=== PATIENT | male | born 1980 | race Caucasian/White ===

== ENCOUNTER 2023-07-26 16:30 | Emergency (ER) | payer BC ==
--- OUTSIDE RECORDS SUMMARY | 2023-07-26 16:34 | XMS REPORT | Continuity of Care Document ---
:1980 Author Organization [facility] t Address [address] [place] [address] [place] [id number] Care Team Providers Name Role Phone Moni Osullivan Primary Care Physician [phone] [email or web address] Attending Clinician Unavailable Jeimy Ellis Attending Clinician [phone] ARTI Attending Clinician Unavailable Sydney Nicole Attending Clinician [phone] FANTA Attending Clinician Unavailable SYEDA_Rachele Attending Clinician Unavailable MONI HYATT Attending Clinician Unavailable KJ FAIRCHILD Attending Clinician Unavailable DAVINA KRISHNA Attending Clinician Unavailable TIARA TATE Attending Clinician Unavailable LYN ENG Attending Clinician Unavailable RHONDA_F Admitting Clinician Unavailable WATERS_S Admitting Clinician Unavailable FANTA Admitting Clinician Unavailable ERYESENIA_R Admitting Clinician Unavailable Payers Payer Name Policy Type Policy Number Effective Date Expiration Date Dinorah bailey [facility] [id number] 2019 00:00:00 [facility] [id number] 2019 00:00:00 [employer] O [id number] 2018 00:00:00 Problems Condition Condition Condition Status Onset Resolution Last Treating Co mments Source Name Details Category Date Date Treatment Clinician Date Fever Fever Problem Active [facility] 8 [facility] 00:[facility]: ty [facility] COVID-19 Covid-19 Problem Active Sween y 04-16 [facility] 00:00: ty [facility] Prediabete Prediabete Problem Active 2021-09 S weeny s s 0-06 Communi 00:00: ty 00 [facility] Degenerati Degenerati Problem Active 2021-09 S weeny ve ve 0-06 Communi disorder Disorder 00:00: ty 00 [facility] Clin[facility] Adult Adult Problem Active [facility] attention Attention 7-18 Comm uni deficit Deficit 00:00: ty hyperactiv Hyperactiv 00 Ho spita ity ity l disorder Disorder Clinic s Hypertensi Hypertensi Problem Active S weeny ve ve 7-18 Communi disorder Disorder 00:00: ty 00 [facility]ospita Clin[facility] Vitamin D Vitamin D Problem Active 2019-09 Swe xi deficiency Deficiency -11 Co mmuni 00:00: ty 00 [facility] Clinics Steatosis Steatosis Problem Active 2019-09 Swe xi of liver of Liver 09-11 Commun i 00:00: ty 00 [facility] Clin[facility] Serum Serum Problem Active 2019-09 [facility] ferritin Ferritin 09-11 Commun i above above 00:00: ty reference Reference 00 [facility] range Range l Clinics Hyperlipid Hyperlipid Problem Active 2019-09 S weeny emia emia 0-21 Communi 00:00: ty 00 [facility] Clin[facility] Malaise Malaise Problem Active 2019-09 [facility] 0-21 [facility]i 00:00: ty 00 [facility] Clin[facility] Liver Liver Problem Active 2019-09 [facility] enzymes Enzymes 0-21 Communi level Level 00:00: ty above above 00 Hospita reference Reference l range Range Clinics Gout Gout Problem Active 2018-09 [facility] 2-03 Communi 00:00: ty 00 [facility] Clin[facility] Essential Essential Problem Active 2018-09 Swe xi hypertensi Hypertensi 09-29 Co mmuni on on 00:00: ty 00 [facility]ospita Clinics Malaise Malaise Problem Active 2018-09 [facility] and and 09-29 Communi fatigue Fatigue 00:00: ty 00 [facility]osp[facility] Clin[facility] Reduced Reduced Problem Active 2018-09 [facility] libido Libido 09-29 Communi 00:00: ty 00 [facility] Clin[facility] Body mass Body Mass Problem Active 2018-09 Swe xi index 40+ Index 40+ - Comm uni - severely - Severely 00:00: ty obese Obese 00 Hospita Clinics Swelling Swelling Problem Active 2018-09 Sween y of of 09-29 Communi bilateral Bilateral 00:00: ty feet Feet 00 Hospita Clinics Acid Acid Problem Active 2017-09 [facility] reflux Reflux 09-02 Communi 00:00: ty 00 [facility]osp[facility] Clinics No known No known Disease Metho di active active st problems problems Hospit a l Allergies, Adverse Reactions, Alerts Allergy Allergy Status Severity Reaction(s) Onset Inactive Treating Comm ents Source Name Type Date Date Clinician NO KNOWN Drug Active Univers ALLERGIE Class ity of S [facility] Family History Family Member Diagnosis Comments Start Date Stop Date Source Maternal grandmother Heart disease [facility] Natural mother Stroke [facility] Social History Social Habit Start Date Stop Date Quantity Comments Source History of tobacco Chews Tobacco Met [facility]od[facility] use Hospital Sexual orientation Method [facility] Alcohol intake 2019-11-23 2019-11-23 Current drinker Metho dist 00:00:00 00:00:00 of alcohol Hospital (finding) History of Social 2019-11-23 2019-11-[address] function 00:00:00 00:00:00 Hospital Tobacco use and 2019-10-20 2019-10-20 User of [facility] exposure 00:00:00 00:00:00 smokeless Hospital tobacco Tobacco Comment 2019-10-20 2019-10-20 Chew at work [facility] 00[facility]00:00 00:00:00 Hospital Sex Assigned At [birth year] [facility] 00:00:00 00:00:00 Hospital Smoking Status Start Date Stop Date Source Never Smoker [facility] Medications Ordered Filled Start Stop Current Ordering Indication Dosage Frequency Signature Comments Components Source Medication Medication Date Date Medication? Clinician (SIG) Name Name allopurinoL 2020- No 300mg QD Take 1 Me thodi (ZYLOPRIM) 02-01 06-[address] 300 MG 00:00: 04:59 (300 mg Hospita tablet 00 :00 total) by l mouth daily. ascorbic 2019-0 Yes 500mg Q.5D Take 1 Method i acid, 3-[address] vitamin C, 00:00: (500 mg [facility] (ascorbic 00 total) by l acid with mouth 2 acacia hips) (two) 500 MG times a tablet day. ascorbic 2020-0 Yes 500mg Q.5D Take 1 Method i acid, 3-[address] vitamin C, 00:00: (500 mg [facility] (ascorbic 00 total) by l acid with mouth 2 acacia hips) (two) 500 MG times a tablet day. losartan 2020-0 Yes 50mg QD Take 50 mg Met hodi (COZAAR) 25 2-[address] MG tablet 00:00: daily. Hospit a 00 l losartan 2020-0 Yes 50mg QD Take 50 mg Met hodi (COZAAR) 25 2-[address] MG tablet 00:00: daily. Hospit a 00 l allopurinol allopurinol No 1 Q1D allopurino [facility] 300 mg 300 mg l 300 mg Communi tablet Take tablet Take tablet ty 1 tablet 1 tablet Take 1 Hospi ta every day every day tablet l by oral by oral every day Clin ics route for route for by oral 90 days. 90 days. route for 90 days. bupropion bupropion No bupropion [facility] HCl XL 300 HCl XL 300 HCl XL 300 Communi mg 24 hr mg 24 hr mg 24 hr ty tablet, tablet, tablet, Hospit a extended extended extended l release release release Clinic s Decara Decara No 1capsul Q1W Decara [facility] 1,250 mcg 1,250 mcg e(s) 1,250 mcg Communi (50,000 (50,000 (50,000 ty unit) unit) unit) Hospita capsule capsule capsule l Take 1 Take 1 Take 1 Clinics capsule capsule capsule every week every week every week by oral by oral by oral route. route. route. dextroamphe dextroamphe No dextroamph [facility] tamine-amph tamine-amph etamine-am Communi etamine 15 etamine 15 phetamine ty mg tablet mg tablet 15 mg [facility] TAKE 1 TAKE 1 tablet l TABLET BY TABLET BY TAKE 1 Cli nics MOUTH TWICE MOUTH TWICE TABLET BY A DAY A DAY MOUTH TWICE A DAY fluoxetine fluoxetine No fluoxetine [facility] 20 mg 20 mg 20 mg Communi capsule capsule capsule ty TAKE 1 TAKE 1 TAKE 1 Hospita CAPSULE BY CAPSULE BY CAPSULE BY l MOUTH EVERY MOUTH EVERY MOUTH Clinics DAY DAY EVERY DAY ivermectin ivermectin No 2 BID ivermectin [facility] 3 mg tablet 3 mg tablet 3 mg C ommuni Take 2 Take 2 tablet ty tablets tablets Take 2 Hospita twice a day twice a day tablets l by oral by oral twice a Clinic s route. route. day by oral route. losartan 50 losartan 50 No losartan [facility] mg tablet mg tablet 50 mg Comm uni Take 1 Take 1 tablet ty tablet tablet Take 1 Hospita every day every day tablet l by oral by oral every day Clin ics route. route. by oral route. Niaspan Niaspan No 1 Q1D Niaspan [facility] 1,000 mg 1,000 mg 1,000 mg Com vin tablet,exte tablet,exte tablet,ext ty nded nded ended Hospita release release release l Take 1 Take 1 Take 1 Clinics tablet tablet tablet every day every day every day by oral by oral by oral route at route at route at bedtime. bedtime. bedtime. venlafaxine venlafaxine No 1capsul Q1D venlafaxin [facility] ER 75 mg ER 75 mg e(s) e ER 75 mg C ommuni capsule,ext capsule,ext capsule,ex ty ended ended tended Hospita release 24 release 24 release 24 l hr Take 1 hr Take 1 hr Take 1 Clinics capsule capsule capsule every day every day every day by oral by oral by oral route. route. route. Zithromax Zithromax No 1 Q1D Zithromax [facility] 500 mg 500 mg 500 mg Communi tablet Take tablet Take tablet ty 1 tablet 1 tablet Take 1 Hospi ta every day every day tablet l by oral by oral every day Clin ics route for 5 route for 5 by oral days. days. route for 5 days. allopurinol allopurinol No allopurino [facility] 300 mg 300 mg l 300 mg Communi tablet TAKE tablet TAKE tablet ty 1 TABLET BY 1 TABLET BY TAKE 1 Hospita MOUTH EVERY MOUTH EVERY TABLET BY l DAY DAY MOUTH Clinics EVERY DAY cholecalcif cholecalcif No cholecalci [facility] lemuel lemuel ferol Communi (vitamin (vitamin (vitamin ty D3) 1,250 D3) 1,250 D3) 1,250 Hospita mcg (50,000 mcg (50,000 mcg l unit) unit) (50,000 Clinics capsule capsule unit) TAKE 1 TAKE 1 capsule CAPSULE BY CAPSULE BY TAKE 1 MOUTH EVERY MOUTH EVERY CAPSULE BY WEEK WEEK MOUTH EVERY WEEK dextroamphe dextroamphe No dextroamph [facility] tamine-amph tamine-amph etamine-am Communi etamine 15 etamine 15 phetamine ty mg tablet mg tablet 15 mg [facility] TAKE 1 TAKE 1 tablet l TABLET BY TABLET BY TAKE 1 Cli nics MOUTH TWICE MOUTH TWICE TABLET BY A DAY A DAY MOUTH TWICE A DAY dextroamphe dextroamphe No 1capsul Q1D dextroamph [facility] tamine-amph tamine-amph e(s) etamine-am Communi etamine ER etamine ER phetamine ty 30 mg 24hr 30 mg 24hr ER 30 mg Hospita capsule,ext capsule,ext 24hr l end release end release capsule,ex Clinics Take 1 Take 1 tend capsule capsule release every day every day Take 1 by oral by oral capsule route for route for every day 30 days. 30 days. by oral route for 30 days. losartan 50 losartan 50 No losartan [facility] mg tablet mg tablet 50 mg Comm uni Take 1 Take 1 tablet ty tablet tablet Take 1 Hospita every day every day tablet l by oral by oral every day Clin ics route. route. by oral route. niacin ER niacin ER No niacin ER [facility] 1,000 mg 1,000 mg 1,000 mg Com vin tablet,exte tablet,exte tablet,ext ty nded nded ended Hospita release 24 release 24 release 24 l hr TAKE 1 hr TAKE 1 hr TAKE 1 Clinics TABLET BY TABLET BY TABLET BY MOUTH AT MOUTH AT MOUTH AT BEDTIME BEDTIME BEDTIME allopurinol allopurinol No allopurino [facility] 300 mg 300 mg l 300 mg Communi tablet TAKE tablet TAKE tablet ty 1 TABLET BY 1 TABLET BY TAKE 1 Hospita MOUTH EVERY MOUTH EVERY TABLET BY l DAY DAY MOUTH Clinics EVERY DAY cholecalcif cholecalcif No cholecalci [facility] lemuel lemuel ferol Communi (vitamin (vitamin (vitamin ty D3) 1,250 D3) 1,250 D3) 1,250 Hospita mcg (50,000 mcg (50,000 mcg l unit) unit) (50,000 Clinics capsule capsule unit) TAKE 1 TAKE 1 capsule CAPSULE BY CAPSULE BY TAKE 1 MOUTH EVERY MOUTH EVERY CAPSULE BY WEEK WEEK MOUTH EVERY WEEK dextroamphe dextroamphe No dextroamph [facility] tamine-amph tamine-amph etamine-am Communi etamine 15 etamine 15 phetamine ty mg tablet mg tablet 15 mg [facility] TAKE 1 TAKE 1 tablet l TABLET BY TABLET BY TAKE 1 Cli nics MOUTH TWICE MOUTH TWICE TABLET BY A DAY A DAY MOUTH TWICE A DAY dextroamphe dextroamphe No dextroamph [facility] tamine-amph tamine-amph etamine-am Communi etamine ER etamine ER phetamine ty 30 mg 24hr 30 mg 24hr ER 30 mg Hospita capsule,ext capsule,ext 24hr l end release end release capsule,ex Clinics TAKE 1 TAKE 1 tend CAPSULE BY CAPSULE BY release MOUTH EVERY MOUTH EVERY TAKE 1 DAY DAY CAPSULE BY MOUTH EVERY DAY losartan 50 losartan 50 No losartan [facility] mg tablet mg tablet 50 mg Comm uni Take 1 Take 1 tablet ty tablet tablet Take 1 Hospita every day every day tablet l by oral by oral every day Clin ics route. route. by oral route. niacin ER niacin ER No niacin ER [facility] 1,000 mg 1,000 mg 1,000 mg Com vin tablet,exte tablet,exte tablet,ext ty nded nded ended Hospita release 24 release 24 release 24 l hr TAKE 1 hr TAKE 1 hr TAKE 1 Clinics TABLET BY TABLET BY TABLET BY MOUTH AT MOUTH AT MOUTH AT BEDTIME BEDTIME BEDTIME allopurinol allopurinol No allopurino [facility] 300 mg 300 mg l 300 mg Communi tablet TAKE tablet TAKE tablet ty 1 TABLET BY 1 TABLET BY TAKE 1 Hospita MOUTH EVERY MOUTH EVERY TABLET BY l DAY DAY MOUTH Clinics EVERY DAY azithromyci azithromyci No 1 Q1D azithromyc [facility] n 500 mg n 500 mg in 500 mg Co mmuni tablet Take tablet Take tablet ty 1 tablet 1 tablet Take 1 Hospi ta every day every day tablet l by oral by oral every day Clin ics route for 5 route for 5 by oral days. days. route for 5 days. cholecalcif cholecalcif No cholecalci [facility] lemuel lemuel ferol Communi (vitamin (vitamin (vitamin ty D3) 1,250 D3) 1,250 D3) 1,250 Hospita mcg (50,000 mcg (50,000 mcg l unit) unit) (50,000 Clinics capsule capsule unit) TAKE 1 TAKE 1 capsule CAPSULE BY CAPSULE BY TAKE 1 MOUTH EVERY MOUTH EVERY CAPSULE BY WEEK WEEK MOUTH EVERY WEEK dextroamphe dextroamphe No dextroamph [facility] tamine-amph tamine-amph etamine-am Communi etamine 15 etamine 15 phetamine ty mg tablet mg tablet 15 mg [facility] TAKE 1 TAKE 1 tablet l TABLET BY TABLET BY TAKE 1 Cli nics MOUTH TWICE MOUTH TWICE TABLET BY A DAY A DAY MOUTH TWICE A DAY dextroamphe dextroamphe No dextroamph [facility] tamine-amph tamine-amph etamine-am Communi etamine ER etamine ER phetamine ty 30 mg 24hr 30 mg 24hr ER 30 mg Hospita capsule,ext capsule,ext 24hr l end release end release capsule,ex Clinics TAKE 1 TAKE 1 tend CAPSULE BY CAPSULE BY release MOUTH EVERY MOUTH EVERY TAKE 1 DAY DAY CAPSULE BY MOUTH EVERY DAY fenofibrate fenofibrate No 2 Q1D fenofibrat [facility] 54 mg 54 mg e 54 mg Communi tablet Take tablet Take tablet ty 2 tablets 2 tablets Take 2 Hos denice every day every day tablets l by oral by oral every day Clin ics route. route. by oral route. ivermectin ivermectin No 2 BID ivermectin [facility] 3 mg tablet 3 mg tablet 3 mg C om[facility]i Take 2 Take 2 tablet ty tablets tablets Take 2 Hospita twice a day twice a day tablets l by oral by oral twice a Clinic s route. route. day by oral route. losartan 50 losartan 50 No losartan [facility] mg tablet mg tablet 50 mg Comm uni Take 1 Take 1 tablet ty tablet tablet Take 1 Hospita every day every day tablet l by oral by oral every day Clin ics route. route. by oral route. niacin ER niacin ER No niacin ER [facility] 1,000 mg 1,000 mg 1,000 mg Com vin tablet,exte tablet,exte tablet,ext ty nded nded ended Hospita release 24 release 24 release 24 l hr TAKE 1 hr TAKE 1 hr TAKE 1 Clinics TABLET BY TABLET BY TABLET BY MOUTH AT MOUTH AT MOUTH AT BEDTIME BEDTIME BEDTIME prednisone prednisone No 1 BID prednisone [facility] 20 mg 20 mg 20 mg Communi tablet Take tablet Take tablet ty 1 tablet 1 tablet Take 1 Hospi ta twice a day twice a day tablet l by oral by oral twice a Clinic s route for 5 route for 5 day by days. days. oral route for 5 days. promethazin promethazin No 1 Q7H promethazi [facility] e 25 mg e 25 mg ne 25 mg Commu ni tablet Take tablet Take tablet ty 1 tablet 1 tablet Take 1 Hospi ta every 6-8 every 6-8 tablet l hours by hours by every 6-8 Cl inics oral route oral route hours by as needed. as needed. oral route as needed. allopurinol allopurinol No allopurino [facility] 300 mg 300 mg l 300 mg Communi tablet TAKE tablet TAKE tablet ty 1 TABLET BY 1 TABLET BY TAKE 1 Hospita MOUTH EVERY MOUTH EVERY TABLET BY l DAY DAY MOUTH Clinics EVERY DAY azithromyci azithromyci No azithromyc [facility] n 500 mg n 500 mg in 500 mg Co mmuni tablet Take tablet Take tablet ty 1 tablet 1 tablet Take 1 Hospi ta every day every day tablet l by oral by oral every day Clin ics route for 5 route for 5 by oral days. days. route for 5 days. cholecalcif cholecalcif No cholecalci [facility] lemuel lemuel ferol Communi (vitamin (vitamin (vitamin ty D3) 1,250 D3) 1,250 D3) 1,250 Hospita mcg (50,000 mcg (50,000 mcg l unit) unit) (50,000 Clinics capsule capsule unit) TAKE 1 TAKE 1 capsule CAPSULE BY CAPSULE BY TAKE 1 MOUTH EVERY MOUTH EVERY CAPSULE BY WEEK WEEK MOUTH EVERY WEEK dextroamphe dextroamphe No dextroamph [facility] tamine-amph tamine-amph etamine-am Communi etamine 15 etamine 15 phetamine ty mg tablet mg tablet 15 mg [facility] TAKE 1 TAKE 1 tablet l TABLET BY TABLET BY TAKE 1 Cli nics MOUTH TWICE MOUTH TWICE TABLET BY A DAY A DAY MOUTH TWICE A DAY dextroamphe dextroamphe No 1 BID dextroamph [facility] tamine-amph tamine-amph etamine-am Communi etamine 20 etamine 20 phetamine ty mg tablet mg tablet 20 mg [facility] Take 1 Take 1 tablet l tablet tablet Take 1 Clinics twice a day twice a day tablet by oral by oral twice a route for route for day by 30 days. 30 days. oral route for 30 days. dextroamphe dextroamphe No dextroamph [facility] tamine-amph tamine-amph etamine-am Communi etamine ER etamine ER phetamine ty 30 mg 24hr 30 mg 24hr ER 30 mg Hospita capsule,ext capsule,ext 24hr l end release end release capsule,ex Clinics TAKE 1 TAKE 1 tend CAPSULE BY CAPSULE BY release MOUTH EVERY MOUTH EVERY TAKE 1 DAY DAY CAPSULE BY MOUTH EVERY DAY fenofibrate fenofibrate No fenofibrat [facility] 54 mg 54 mg e 54 mg Communi tablet Take tablet Take tablet ty 2 tablets 2 tablets Take 2 Hos denice every day every day tablets l by oral by oral every day Clin ics route. route. by oral route. ivermectin ivermectin No ivermectin [facility] 3 mg tablet 3 mg tablet 3 mg C [facility] Take 2 Take 2 tablet ty tablets tablets Take 2 Hospita twice a day twice a day tablets l by oral by oral twice a Clinic s route. route. day by oral route. losartan 50 losartan 50 No losartan [facility] mg tablet mg tablet 50 mg Comm uni Take 1 Take 1 tablet ty tablet tablet Take 1 Hospita every day every day tablet l by oral by oral every day Clin ics route. route. by oral route. niacin ER niacin ER No niacin ER [facility] 1,000 mg 1,000 mg 1,000 mg Com vin tablet,exte tablet,exte tablet,ext ty nded nded ended Hospita release 24 release 24 release 24 l hr TAKE 1 hr TAKE 1 hr TAKE 1 Clinics TABLET BY TABLET BY TABLET BY MOUTH AT MOUTH AT MOUTH AT BEDTIME BEDTIME BEDTIME prednisone prednisone No prednisone [facility] 20 mg 20 mg 20 mg Communi tablet Take tablet Take tablet ty 1 tablet 1 tablet Take 1 Hospi ta twice a day twice a day tablet l by oral by oral twice a Clinic s route for 5 route for 5 day by days. days. oral route for 5 days. promethazin promethazin No promethazi [facility] e 25 mg e 25 mg ne 25 mg Commu ni tablet Take tablet Take tablet ty 1 tablet 1 tablet Take 1 Hospi ta every 6-8 every 6-8 tablet l hours by hours by every 6-8 Cl inics oral route oral route hours by as needed. as needed. oral route as needed. venlafaxine venlafaxine No venlafaxin [facility] ER 75 mg ER 75 mg e ER 75 mg [facility] capsule,ext capsule,ext capsule,ex ty ended ended tended Hospita release 24 release 24 release 24 l hr TAKE 1 hr TAKE 1 hr TAKE 1 Clinics CAPSULE BY CAPSULE BY CAPSULE BY MOUTH EVERY MOUTH EVERY MOUTH DAY DAY EVERY DAY allopurinol allopurinol No allopurino [facility] 300 mg 300 mg l 300 mg Communi tablet TAKE tablet TAKE tablet ty 1 TABLET BY 1 TABLET BY TAKE 1 Hospita MOUTH EVERY MOUTH EVERY TABLET BY l DAY DAY MOUTH Clinics EVERY DAY dextroamphe dextroamphe No 1 BID dextroamph [facility] tamine-amph tamine-amph etamine-am Communi etamine 20 etamine 20 phetamine ty mg tablet mg tablet 20 mg [facility] Take 1 Take 1 tablet l tablet tablet Take 1 Clinics twice a day twice a day tablet by oral by oral twice a route. route. day by oral route. losartan 50 losartan 50 No losartan [facility] mg tablet mg tablet 50 mg Comm uni TAKE 1 TAKE 1 tablet ty TABLET BY TABLET BY TAKE 1 Hos denice MOUTH EVERY MOUTH EVERY TABLET BY l DAY DAY MOUTH Clinics EVERY DAY allopurinol allopurinol No allopurino [facility] 300 mg 300 mg l 300 mg Communi tablet TAKE tablet TAKE tablet ty 1 TABLET BY 1 TABLET BY TAKE 1 Hospita MOUTH EVERY MOUTH EVERY TABLET BY l DAY DAY MOUTH Clinics EVERY DAY dextroamphe dextroamphe No dextroamph [facility] tamine-amph tamine-amph etamine-am Communi etamine 20 etamine 20 phetamine ty mg tablet mg tablet 20 mg [facility] TAKE 1 TAKE 1 tablet l TABLET BY TABLET BY TAKE 1 Cli nics MOUTH TWICE MOUTH TWICE TABLET BY DAILY DAILY MOUTH TWICE DAILY losartan 50 losartan 50 No losartan [facility] mg tablet mg tablet 50 mg Comm uni TAKE 1 TAKE 1 tablet ty TABLET BY TABLET BY TAKE 1 Hos denice MOUTH EVERY MOUTH EVERY TABLET BY l DAY DAY MOUTH Clinics EVERY DAY cholecalcif cholecalcif No 1capsul Q1W cholecalci [facility] lmeuel lemuel e(s) ferol Jean Marie (vitamin (vitamin (vitamin ty D3) 1,250 D3) 1,250 D3) 1,250 Hospita mcg (50,000 mcg (50,000 mcg l unit) unit) (50,000 Clinics capsule capsule unit) Take 1 Take 1 capsule capsule capsule Take 1 every week every week capsule by oral by oral every week route as route as by oral directed. directed. route as directed. dextroamphe dextroamphe No dextroamph [facility] tamine-amph tamine-amph etamine-am Communi etamine 20 etamine 20 phetamine ty mg tablet mg tablet 20 mg [facility] TAKE 1 TAKE 1 tablet l TABLET BY TABLET BY TAKE 1 Cli nics MOUTH TWICE MOUTH TWICE TABLET BY DAILY DAILY MOUTH TWICE DAILY allopurinol allopurinol No allopurino [facility] 300 mg 300 mg l 300 mg Communi tablet tablet tablet ty Hospita l Clinics cholecalcif cholecalcif No 1capsul Q1W cholecalci [facility] lemuel lemuel e(s) ferol Communi (vitamin (vitamin (vitamin ty D3) 1,250 D3) 1,250 D3) 1,250 Hospita mcg (50,000 mcg (50,000 mcg l unit) unit) (50,000 Clinics capsule capsule unit) Take 1 Take 1 capsule capsule capsule Take 1 every week every week capsule by oral by oral every week route as route as by oral directed. directed. route as directed. dextroamphe dextroamphe No 1capsul Q1D dextroamph [facility] tamine-amph tamine-amph e(s) etamine-am Communi etamine ER etamine ER phetamine ty 20 mg 24hr 20 mg 24hr ER 20 mg Hospita capsule,ext capsule,ext 24hr l end release end release capsule,ex Clinics Take 1 Take 1 tend capsule capsule release every day every day Take 1 by oral by oral capsule route. route. every day by oral route. allopurinol allopurinol No allopurino [facility] 300 mg 300 mg l 300 mg Communi tablet TAKE tablet TAKE tablet ty 1 TABLET BY 1 TABLET BY TAKE 1 Hospita MOUTH EVERY MOUTH EVERY TABLET BY l DAY DAY MOUTH Clinics EVERY DAY dextroamphe dextroamphe No dextroamph [facility] tamine-amph tamine-amph etamine-am Communi etamine 20 etamine 20 phetamine ty mg tablet mg tablet 20 mg [facility] TAKE 1 TAKE 1 tablet l TABLET BY TABLET BY TAKE 1 Cli nics MOUTH TWICE MOUTH TWICE TABLET BY DAILY DAILY MOUTH TWICE DAILY allopurinol allopurinol No allopurino [facility] 300 mg 300 mg l 300 mg Communi tablet TAKE tablet TAKE tablet ty 1 TABLET BY 1 TABLET BY TAKE 1 Hospita MOUTH EVERY MOUTH EVERY TABLET BY l DAY DAY MOUTH Clinics EVERY DAY dextroamphe dextroamphe No dextroamph [facility] tamine-amph tamine-amph etamine-am Communi etamine 20 etamine 20 phetamine ty mg tablet mg tablet 20 mg [facility] TAKE 1 TAKE 1 tablet l TABLET BY TABLET BY TAKE 1 Cli nics MOUTH TWICE MOUTH TWICE TABLET BY DAILY DAILY MOUTH TWICE DAILY allopurinol allopurinol No allopurino [facility] 300 mg 300 mg l 300 mg Communi tablet TAKE tablet TAKE tablet ty 1 TABLET BY 1 TABLET BY TAKE 1 Hospita MOUTH EVERY MOUTH EVERY TABLET BY l DAY DAY MOUTH Clinics EVERY DAY dextroamphe dextroamphe No dextroamph [facility] tamine-amph tamine-amph etamine-am Communi etamine 20 etamine 20 phetamine ty mg tablet mg tablet 20 mg [facility] TAKE 1 TAKE 1 tablet l TABLET BY TABLET BY TAKE 1 Cli nics MOUTH TWICE MOUTH TWICE TABLET BY DAILY DAILY MOUTH TWICE DAILY dextroamphe dextroamphe No dextroamph [facility] tamine-amph tamine-amph etamine-am Communi etamine ER etamine ER phetamine ty 20 mg 24hr 20 mg 24hr ER 20 mg Hospita capsule,ext capsule,ext 24hr l end release end release capsule,ex Clinics TAKE ONE TAKE ONE tend (1) (1) release CAPSULE(S) CAPSULE(S) TAKE ONE BY MOUTH BY MOUTH (1) DAILY. DAILY. CAPSULE(S) BY MOUTH DAILY. fenofibrate fenofibrate No fenofibrat [facility] micronized micronized e Com vin 134 mg 134 mg micronized ty capsule capsule 134 mg Hospita TAKE 1 TAKE 1 capsule l CAPSULE BY CAPSULE BY TAKE 1 C linics MOUTH EVERY MOUTH EVERY CAPSULE BY DAY DAY MOUTH DIRECTED DIRECTED EVERY DAY DIRECTED allopurinol allopurinol No allopurino [facility] 300 mg 300 mg l 300 mg Communi tablet TAKE tablet TAKE tablet ty 1 TABLET BY 1 TABLET BY TAKE 1 Hospita MOUTH EVERY MOUTH EVERY TABLET BY l DAY DAY MOUTH Clinics EVERY DAY dextroamphe dextroamphe No dextroamph [facility]acy tamine-amph tamine-amph etamine-am Communi etamine 20 etamine 20 phetamine ty mg tablet mg tablet 20 mg Hosp kimberli TAKE 1 TAKE 1 tablet l TABLET BY TABLET BY TAKE 1 Cli nics MOUTH TWICE MOUTH TWICE TABLET BY DAILY DAILY MOUTH TWICE DAILY dextroamphe dextroamphe No dextroamph [facility] tamine-amph tamine-amph etamine-am Communi etamine ER etamine ER phetamine ty 20 mg 24hr 20 mg 24hr ER 20 mg Hospita capsule,ext capsule,ext 24hr l end release end release capsule,ex Clinics TAKE ONE TAKE ONE tend (1) (1) release CAPSULE(S) CAPSULE(S) TAKE ONE BY MOUTH BY MOUTH (1) DAILY. DAILY. CAPSULE(S) BY MOUTH DAILY. fenofibrate fenofibrate No fenofibrat [facility] micronized micronized e Com vin 134 mg 134 mg micronized ty capsule capsule 134 mg Hospita TAKE 1 TAKE 1 capsule l CAPSULE BY CAPSULE BY TAKE 1 C linics MOUTH EVERY MOUTH EVERY CAPSULE BY DAY DAY MOUTH DIRECTED DIRECTED EVERY DAY DIRECTED allopurinol allopurinol No allopurino [facility] 300 mg 300 mg l 300 mg Communi tablet TAKE tablet TAKE tablet ty 1 TABLET BY 1 TABLET BY TAKE 1 Hospita MOUTH EVERY MOUTH EVERY TABLET BY l DAY DAY MOUTH Clinics EVERY DAY dextroamphe dextroamphe No 2capsul Q1D dextroamph [facility] tamine-amph tamine-amph e(s) etamine-am Communi etamine ER etamine ER phetamine ty 10 mg 24hr 10 mg 24hr ER 10 mg Hospita capsule,ext capsule,ext 24hr l end release end release capsule,ex Clinics Take 2 Take 2 tend capsules capsules release every day every day Take 2 by oral by oral capsules route. route. every day by oral route. fenofibrate fenofibrate No fenofibrat [facility] micronized micronized e Com vin 134 mg 134 mg micronized ty capsule capsule 134 mg Hospita TAKE 1 TAKE 1 capsule l CAPSULE BY CAPSULE BY TAKE 1 C linics MOUTH EVERY MOUTH EVERY CAPSULE BY DAY DAY MOUTH DIRECTED DIRECTED EVERY DAY DIRECTED dextroamphe dextroamphe No dextroamph [facility] tamine-amph tamine-amph etamine-am Communi etamine 20 etamine 20 phetamine ty mg tablet mg tablet 20 mg Hosp kimberli TAKE 1 TAKE 1 tablet l TABLET BY TABLET BY TAKE 1 Cli nics MOUTH TWICE MOUTH TWICE TABLET BY DAILY DAILY MOUTH TWICE DAILY Vital Signs Vital Name Observation Time Observation Value Comments Source BP Systolic 2023-06-05 00:00:00 114 mm[Hg] [facility] Body Weight 2023-06-05 00:00:00 5257.6 [oz_av] [facility] BP Diastolic 2023-06-05 00:00:00 87 mm[Hg] [facility] Height 2023-06-05 00:00:00 75 [in_i] [facility] BMI (Body Mass 2023-06-05 00:00:00 41.1 kg/m2 [facility] BP Diastolic 2023-04-16 00:00:00 112 mm[Hg] [facility] Height 2023-04-16 00:00:00 75 [in_i] [facility] BP Systolic 2023-04-16 00:00:00 157 mm[Hg] [facility] s BP Diastolic 2023-02-19 00:00:00 90 mm[Hg] [facility] Height 2023-02-19 00:00:00 75 [in_i] [facility] s BMI (Body Mass 2023-02-19 00:00:00 40.5 kg/m2 [facility] s BP Systolic 2023-02-19 00:00:00 140 mm[Hg] [facility] s Body Weight 2023-02-19 00:00:00 5180.8 [oz_av] [facility] BP Diastolic 2022-11-25 00:00:00 83 mm[Hg] [facility] Height 2022-11-25 00:00:00 75 [in_i] [facility] s BMI (Body Mass 2022-11-25 00:00:00 39.3 kg/m2 [facility] s BP Systolic 2022-11-25 00:00:00 130 mm[Hg] [facility] s Body Weight 2022-11-25 00:00:00 5030.4 [oz_av] [facility] BP Diastolic 2022-09-16 00:00:00 87 mm[Hg] [facility] Height 2022-09-16 00:00:00 75 [in_i] [facility] s BMI (Body Mass 2022-09-16 00:00:00 42.6 kg/m2 [facility] BP Systolic 2022-09-16 00:00:00 130 mm[Hg] [facility] Body Weight 2022-09-16 00:00:00 5452.8 [oz_av] [facility] BP Diastolic 2022-08-21 00:00:00 92 mm[Hg] [facility] Height 2022-08-21 00:00:00 75 [in_i] [facility] s BMI (Body Mass 2022-08-21 00:00:00 44.2 kg/m2 [facility] BP Systolic 2022-08-21 00:00:00 141 mm[Hg] [facility] Body Weight 2022-08-21 00:00:00 5664 [oz_av] [facility] BP Diastolic 2022-06-06 00:00:00 79 mm[Hg] [facility] Height 2022-06-06 00:00:00 75 [in_i] [facility] BMI (Body Mass 2022-06-06 00:00:00 45.7 kg/m2 [facility] BP Systolic 2022-06-06 00:00:00 129 mm[Hg] [facility] Body Weight 2022-06-06 00:00:00 5846.4 [oz_av] [facility] BP Diastolic 2022-03-18 00:00:00 92 mm[Hg] [facility] Height 2022-03-18 00:00:00 75 [in_i] [facility] BMI (Body Mass 2022-03-18 00:00:00 48.5 kg/m2 [facility] BP Systolic 2022-03-18 00:00:00 155 mm[Hg] [facility] Body Weight 2022-03-18 00:00:00 6211.2 [oz_av] [facility] BP Diastolic 2021-12-26 00:00:00 84 mm[Hg] [facility] Height 2021-12-26 00:00:00 75 [in_i] [facility] s BMI (Body Mass 2021-12-26 00:00:00 47.2 kg/m2 [facility] BP Systolic 2021-12-26 00:00:00 152 mm[Hg] [facility] Body Weight 2021-12-26 00:00:00 6041.6 [oz_av] [facility] BP Diastolic 2021-06-25 00:00:00 92 mm[Hg] [facility] Height 2021-06-25 00:00:00 75 [in_i] [facility] s BMI (Body Mass 2021-06-25 00:00:00 47 kg/m2 [facility] s BP Systolic 2021-06-25 00:00:00 140 mm[Hg] [facility] s Body Weight 2021-06-25 00:00:00 6016 [oz_av] [facility] s BP Diastolic 2021-04-25 00:00:00 76 mm[Hg] [facility] Height 2021-04-25 00:00:00 75 [in_i] [facility] BMI (Body Mass 2021-04-25 00:00:00 45.8 kg/m2 [facility] BP Systolic 2021-04-25 00:00:00 125 mm[Hg] [facility] Body Weight 2021-04-25 00:00:00 5868.8 [oz_av] [facility] BP Diastolic 2021-03-12 00:00:00 96 mm[Hg] [facility] Height 2021-03-12 00:00:00 75 [in_i] [facility] BMI (Body Mass 2021-03-12 00:00:00 46 kg/m2 [facility] s BP Systolic 2021-03-12 00:00:00 155 mm[Hg] [facility] Body Weight 2021-03-12 00:00:00 5894.4 [oz_av] [facility] BP Diastolic 2021-02-23 00:00:00 89 mm[Hg] [facility] s Height 2021-02-23 00:00:00 75 [in_i] [facility] s BMI (Body Mass 2021-02-23 00:00:00 44.4 kg/m2 [facility] BP Systolic 2021-02-23 00:00:00 135 mm[Hg] [facility] s Body Weight 2021-02-23 00:00:00 5686.4 [oz_av] [facility] Procedures This patient has no known procedures. Plan of Care Planned Activity Planned Date Details Comments Source Future Scheduled Test 2023-06-28 COVID-19 VACCINE [facility] 07:47:48 (#1) [code = COVID-19 VACCINE (#1)] Future Scheduled Test 2023-06-28 INFLUENZA VACCINE [facility] 07:47:48 (#1) [code = INFLUENZA VACCINE (#1)] Diagnostic Test 2023-04-16 rapid SARS CoV 2 Ag, [facility] Pending 00:00:00 QL IA, respiratory Hospital Clinics specimen [code = rapid SARS CoV 2 Ag, QL [place], respiratory specimen] Diagnostic Test 2023-04-16 rapid strep group A, [facility] Pending 00:00:00 throat [code = rapid Hospita l Clinics strep group A, throat] Diagnostic Test 2023-04-16 rapid flu (A+B) [facility] Pending 00:00:00 [code = rapid flu Hospital C linics (A+B)] Future Scheduled Test 2021-10-03 COVID-19 VACCINE (1) [facility] 00:53:55 [code = COVID-19 VACCINE (1)] Future Scheduled Test 2021-10-03 Hepatitis C Method [facility] 00:53:55 screening (procedure) [code = 222351039] Future Scheduled Test 2021-10-03 INFLUENZA VACCINE M [facility] 00:53:55 [code = INFLUENZA VACCINE] [facility]ructions [facility] Encounters Start End Encounter Admission Attending Care Care Encounter Source Date/Time Date/Time Type Type Clinicians Facility Department ID 2023-07-19 2023-07-19 Outpatient [facility] [id number] [facility] 00:00:00 00:00:00 118 [facility] 2023-07-03 2023-07-03 Outpatient [facility] [id number] [facility] 00:00:00 00:00:00 102 [facility] 2023-06-14 2023-06-14 Outpatient [facility] [id number] [facility] 00:00:00 00:00:00 014 [facility] 2023-06-05 2023-06-05 Jeimy [facility] [place] - Stacy [id number] [facility]acy 00:00:00 00:00:00 [facility] [place] MICROBIOLOGICAL LAB TECHNICIAN-HOME INSURANCE AGENT-B Hospital - ty C: [address], [address] [address] , Ph. 2023-06-02 2023-06-02 Outpatient [facility] [id number] St[facility] 00:00:00 00:00:00 002 [facility] 2023-06-02 2023-06-02 Outpatient [facility] [id number] [facility] 00:00:00 00:00:00 005 [facility] 2023-05-10 2023-05-10 Outpatient [facility] [id number] Stacy 00:00:00 00:00:00 909 [facility] 2023-04-16 2023-04-16 Outpatient [facility] [id number] Stacy 00:00:00 00:00:00 816 [facility] 2023-04-16 2023-04-16 Jeimy [facility] [place] - Stacy [id number] Stacy 00:00:00 00:00:00 [facility] [place] [place] MICROBIOLOGICAL LAB TECHNICIAN-HOME INSURANCE AGENT-B Hospital - ty C: [address], [address], [place] [address] , Ph. 2023-04-05 2023-04-05 Outpatient [facility] [id number] St[facility] 00:00:00 00:00:00 805 [facility] 2023-03-03 2023-03-03 Outpatient [facility] [id number] Stacy 00:00:00 00:00:00 703 [facility] i [facility] 2023-02-19 2023-02-19 Jeimy [facility] [place] Stacy Stacy 00:00:00 00:00:00 [facility] [place] [place] MICROBIOLOGICAL LAB TECHNICIAN-HOME INSURANCE AGENT-B Hospital - ty C: [address], [address], [place] [address] , Ph. 2023-02-10 2023-02-10 Outpatient [facility] [id number] Stacy 00:00:00 00:00:00 621 [facility] i [facility] 2022-12-05 2022-12-05 Outpatient [facility] [id number] [facility] 00:00:00 00:00:00 406 [facility] 2022-11-25 2022-11-25 Jeimy [facility] [place] - Stacy [id number] Stacy 00:00:00 00:00:00 [facility] [place] MICROBIOLOGICAL LAB TECHNICIAN-HOME INSURANCE AGENT-B Hospital - ty C: [address], [address], [place] [address] , Ph. 2022-10-16 2022-10-16 Outpatient [facility] 89 - Stacy 00:00:00 00:00:00 215 [facility] 2022-10-16 2022-10-16 Outpatient [facility] 89 - Stacy 00:00:00 00:00:00 327 [facility] 2022-09-16 2022-09-16 Outpatient [facility] 89 - Stacy 00:00:00 00:00:00 116 [facility] 2022-09-16 2022-09-16 Jeimy [facility] [place] 16 Stacy 00:00:00 00:00:00 [facility]-B Hospital - ty C: [address], [address], [place] [address] , Ph. 2022-09-11 2022-09-11 Outpatient [facility] 89 - Stacy 00:00:00 00:00:00 111 [facility] 2022-08-21 2022-08-21 Outpatient [facility] 89 - Stacy 00:00:00 00:00:00 221 [facility] 2022-08-21 2022-08-21 Jeimy [facility] [place] Stacy [id number] Stacy 00:00:00 00:00:00 [facility]-B Hospital - ty C: [address], [address], [place] [address] , Ph. 2022-07-23 2022-07-23 Outpatient [facility] [id number] - Stacy 00:00:00 00:00:00 122 [facility] 2022-06-17 2022-06-17 Outpatient [facility] 89 - Stacy 00:00:00 00:00:00 017 [facility] i [facility] 2022-06-06 2022-06-06 Outpatient [facility] 89 - Stacy 00:00:00 00:00:00 006 [facility] 2022-06-06 2022-06-06 Jeimy [facility] [place] - [place] 06 Stacy 00:00:00 00:00:00 [facility] ty C: [address], [address] [place] [address] , Ph. 2022-04-02 2022-04-02 Outpatient [facility] 89 - Stacy 00:00:00 00:00:00 802 [facility] 2022-03-18 2022-03-18 Outpatient [facility] 89 - Stacy 11:22:00 11:22:00 718 [facility] i [facility] 2022-03-18 2022-03-18 Jeimy [facility] [place] - Stacy Stacy 00:00:00 00:00:00 [facility] - ty C: [address], CL[address]IC [address] [facility], [place] [address] , Ph. 2022-03-18 2022-03-18 Outpatient Chretien, [facility] [id number] 00:00:00 00:00:00 Jeimy [id number] 2022-03-12 2022-03-12 Outpatient [facility] [id number] - Stacy 11:02:00 11:02:00 712 [facility] i [facility] 2022-02-26 2022-02-26 Outpatient [facility] [id number] Stacy 01:42:00 01:42:00 628 [facility] 2022-01-22 2022-01-22 Outpatient [facility] [id number] Stacy 02:30:00 02:30:00 524 [facility] 2021-12-26 2021-12-26 Outpatient [facility] [id number] Stacy 04:12:00 04:12:00 427 [facility] 2021-12-26 2021-12-26 Jeimy [facility] [place] - St[place] Stacy 00:00:00 00:00:00 [facility] MICROBIOLOGICAL LAB TECHNICIAN-HOME INSURANCE AGENT-B Hospital - ty C: [address], [address], [place] [address] , Ph. 2021-12-26 2021-12-26 Outpatient Rhonda [facility] [id number] 00:00:00 00:00:00 Jeimy [id number] 2021-10-28 2021-10-28 Outpatient [facility] [id number] Stacy 02:13:00 02:13:00 227 [facility] 2021-09-25 2021-09-25 Outpatient [facility] [id number] Stacy 03:33:00 03:33:00 125 [facility] 2021-09-23 2021-09-23 Outpatient [facility] [id number] Stacy 12:57:00 12:57:00 123 [facility] 2021-08-15 2021-08-15 Outpatient [facility] [id number] [facility]acy 02:27:00 02:27:00 215 [facility] 2021-08-02 2021-08-02 Outpatient [facility] [id number] Stacy 04:20:00 04:20:00 202 [facility] 2021-07-11 2021-07-11 Outpatient [facility] [id number] [facility]acy 01:14:00 01:14:00 110 [facility] 2021-06-25 2021-06-25 Outpatient [facility] [id number] Stacy 02:42:00 02:42:00 025 [facility] i [facility] 2021-06-25 2021-06-25 [facility] [place] - Stacy Stacy 00:00:00 00:00:00 [facility] Comm uni MICROBIOLOGICAL LAB TECHNICIAN-COMMUNITY ARTS WORKER-C: [facility] [address] [address], [place] [address] , Ph. 2021-06-25 2021-06-25 Outpatient [facility] [id number] 00:00:00 00:00:00 [place] [id number] 2021-05-30 2021-05-30 Outpatient [facility] [id number] Stacy 01:29:00 01:29:00 929 [facility] 2021-04-25 2021-04-25 Outpatient [facility] [id number] Stacy 02:39:00 02:39:00 825 [facility] 2021-04-25 2021-04-25 [facility] [place] - Stacy Stacy 00:00:00 00:00:00 [facility] MICROBIOLOGICAL LAB TECHNICIAN-COMMUNITY ARTS WORKER-C: Hospital [address], [place] [address] , Ph. 2021-04-25 2021-04-25 Outpatient [facility] [id number] 00:00:00 00:00:00 [place] [id number] 2021-04-25 2021-04-25 [facility] [id number] 00:00:00 00:00:00 [place] [id number] 2021-03-21 2021-03-21 Outpatient [facility] 89 Stacy 01:33:00 01:33:00 721 Commun i ty Hospita [facility] 2021-03-12 2021-03-12 Outpatient [facility] Stacy 06:14:00 06:14:00 712 Commun i ty Hospita [facility] 2021-03-12 2021-03-12 [place] [facility] [place] - Stacy Stacy 00:00:00 00:00:00 [facility] MICROBIOLOGICAL LAB TECHNICIAN-COMMUNITY ARTS WORKER-C: [address] [address], [place] [address] , Ph. 2021-03-12 2021-03-12 Outpatient [facility] [id number] 00:00:00 00:00:00 [place] [id number] 2021-02-23 2021-02-23 Outpatient [facility] 89- Stacy 09:58:00 09:58:00 625 Commun ty Hospita [facility] 2021-02-23 2021-02-23 Outpatient [facility] [id number] 00:00:00 00:00:00 [place] [id number] 2021-02-23 2021-02-23 [place] [facility] [place] - Stacy Stacy 00:00:00 00:00:00 [facility] MICROBIOLOGICAL LAB TECHNICIAN-COMMUNITY ARTS WORKER-C: [address] [facility], [place] [address] , Ph. 2021-02-22 2021-02-22 Outpatient ERICKSON_[facility] [id number] Stacy 04:33:00 04:33:00 0624 [facility] 2021-02-14 2021-02-14 Outpatient [facility] [id number] Stacy 04:41:00 04:41:00 616 [facility] 2020-11-09 2020-11-09 Outpatient [facility] [id number] Stacy 01:01:00 01:01:00 311 [facility] 2020-10-05 2020-10-05 Outpatient [facility] [id number] Stacy 01:08:00 01:08:00 204 [facility] 2020-08-31 2020-08-31 Outpatient [facility] [id number] Stacy 01:03:00 01:03:00 231 [facility] i [facility] 2020-06-27 2020-06-27 Outpatient Rachele HYATT, [facility] [id number] 00:00:00 00:00:00 MONI [facility] 2019-11-25 2019-11-25 Outpatient FAKOYA [facility] [id number] [place] 00:00:00 00:00:00 LATIFA [address] 2019-11-23 2019-11-23 Outpatient TOMI DAVINA [facility] [id number] [place] 00:00:00 00:00:[address] 2019-11-16 2019-11-16 Outpatient TIARA TATE [facility] [id number] [place] 00:00:00 00:00:[address] 2019-11-12 2019-11-12 Outpatient TIARA TATE [facility] [id number] [place] 00:00:00 00:00:[address] 2019-11-05 2019-11-05 Outpatient TIARA TATE [facility] [id number] [place] 00:00:00 00:00:[address] 2019-11-05 2019-11-05 Outpatient TIARA TATE [facility] [id number] [place] 00:00:00 00:00:[address] 2019-11-05 2019-11-05 Outpatient TIARA TATE [facility] [id number] [place] 00:00:00 00:00:[address] 2019-11-05 2019-11-05 Outpatient TIARA TATE [facility] [id number] [place] 00:00:00 00:00:[address] 2019-10-20 2019-10-20 Outpatient DAVINA KRISHNA [facility] [id number] [place] 00:00:00 00:00:[address] 2019-10-20 2019-10-20 Outpatient TOMIDAVINA [facility] [id number] [place] 00:00:00 00:00:[address] 2019-07-24 2019-07-[address] [facility] [id number] [facility] 12:50:00 23:59:00 LYN [facility] Results Test Description Test Time Test Comments Results Result Comments Source rapid strep group A, throat 2023-04-16 15:05:00 Test Item Value Reference Range Interpretation Comme nts Strep (test code = Strep) [facility] Ag [Presence] in Respiratory specimen by Rapid [id number] 15:05:00 Test Item Value Reference Range Interpretation Comments SARS CoV 2 (test code = SARS CoV 2) positive [facility] (A+B)2023-04-16 15:04:00 Test Item Value Reference Range Interpretation Comments FLU A (test code = FLU A) negative FLU B (test code = FLU B) negative [facility] ([facility]-19) Ag [Presence] in Respiratory specimen by Rapid [id number] 13:16:00 Test Item Value Reference Range Interpretation Comments SARS CoV 2 (test code = SARS CoV 2) [facility] Ag [Presence] in Respiratory specimen by Rapid [id number] 13:16:00 Test Item Value Reference Range Interpretation Comments SARS CoV 2 (test code = SARS CoV 2) positive [facility]
[2023-07-26] MEDS ORDERED: METHYLPREDNISOLONE 125 MG INJ ONE (17:42)
[2023-07-26] MEDS ORDERED: KETOROLAC 30 MG/ML INJ ONE (17:42)
[2023-07-26] MEDS ORDERED: HYDROMORPHONE HCL 1 MG/ML INJ ONE (17:42)
[2023-07-26] MEDS ORDERED: ONDANSETRON 4 MG/2 ML VIAL ONE (17:43)
--- NOTE | 2023-07-26 18:05 | RAD REPORT ---
EXAM DESCRIPTION: RAD - Lumbar Spine 3 Views - 07/26/2023 5:56 pm CLINICAL HISTORY: LOWER BACK PAIN Radiculopathy COMPARISON: No comparisons FINDINGS: Vertebral body heights appear maintained. No compression fracture noted. Moderate disc thi nning with endplate osteophyte and L4-5. Moderate to significant disc thinning with vacuum disc degen eration endplate osteophyte L5-S1. No spondylolysis or spondylolisthesis. Minimal levoscoliosis lower lumbar spine. IMPRESSION: Moderate lower lumbar degenerative spondylosis.
--- NOTE | 2023-07-26 18:17 | EDPHYS ---
Physician Documentation [facility] Name: Rob Saba Age: 43 yrs Sex: Male : 1980 Arrival Date: 07/26/2023 Time: 16:30 Bed 14 Private MD: ED Physician Scott Fish Historical: - Allergies: 07/26 16:46 No Known Allergies; ko1 - Immunization history:: Adult Immunizations unknown. - Social history:: Smoking status: Patient denies any tobacco usage or history of. Vital Signs: 16:41 BP 155 / 92; Pulse 87; Resp 18; Temp 97.5; Pulse Ox 100% ; ko1 MDM: 16:55 Patient medically screened. sp3 17:54 Independent interpretation of the following test(s) in the Emergency Department X-Ray: snw My interpretation is spurring L5, disc spaces maintained. 07/26 16:57 Order name: Lumbar Spine (3 Views) XRAY; Complete Time: 18:16 sp3 07/26 17:16 Order name: IV Saline Lock; Complete Time: 17:39 sp3 Administered Medications: 17:39 Drug: Ketorolac IVP 30 mg IVP once Route: IVP; Site: right antecubital; cm10 18:39 Follow up: Response: No adverse reaction cm10 17:39 Drug: HYDROmorphone IVP 1 mg IVP once Route: IVP; Site: right antecubital; cm10 18:39 Follow up: Response: No adverse reaction cm10 17:39 Drug: MethylPrednisoLONE IVP 125 mg IVP once Route: IVP; Site: right antecubital; cm10 18:39 Follow up: Response: No adverse reaction cm10 17:39 Drug: Ondansetron IVP 4 mg IVP once; PRN NAUSEA Route: IVP; Site: right antecubital; cm10 18:39 Follow up: Response: No adverse reaction cm10 Disposition Summary: 07/26/23 18:17 Discharge Ordered Notes: Location: Home snw Condition: Stable snw Diagnosis - Low back pain snw - Other spondylosis with radiculopathy, lumbar region snw Followup: snw - With: Private Physician - When: 2 - 3 days - Reason: Recheck today's complaints, Continuance of care, Re-evaluation by your physician Followup: snw - With: Emergency Department - When: As needed - Reason: Worsening of condition Discharge Instructions: - Discharge Summary Sheet snw - Acute Back Pain, Adult snw - Musculoskeletal Pain snw - How to Use Cold Therapy snw - Rehydration, Adult snw - Heat Therapy snw - Back Injury Prevention snw Forms: - Work release form snw - Medication Reconciliation Form snw - Thank You Letter snw - Antibiotic Education snw - Prescription Opioid Use snw - Patient Portal Instructions snw - Leadership Thank You Letter snw Prescriptions: - Diclofenac Sodium 75 mg Oral Tablet Sustained Release - take 1 tablet ORAL route 2 times per day; 30 tablet; Refills: 0, Product snw Selection Permitted - orphenadrine citrate 100 mg Oral Tablet Sustained Release - take 1 tablet ORAL route 2 times per day As needed; 20 tablet; Refills: 0, snw Product Selection Permitted - Pepcid 20 mg Oral Tablet - take 1 tablet ORAL route once daily; 20 tablet; Refills: 0, Product Selection snw Permitted Signatures: Dispatcher [employer] EDSydney Santiago, BEEF FARMER-C BEEF FARMER-Csnw Scott Fish MD MD sp3 Faustina Portillo, RN RN ko1 Renetta Wheatley, RN RN cm10
--- NOTE | 2023-07-26 18:17 | ER ---
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 Today ko1 having severe back spasms. Coronavirus screen: At this time, the client does not indicate any symptoms associated with coronavirus-19. Ebola Screen: No symptoms or risks identified at this time. Initial Sepsis Screen: Does the patient meet any 2 criteria? No. Patient's initial sepsis screen is negative. Does the patient have a suspected source of infection? No. Patient's initial sepsis screen is negative. Risk Assessment: Do you want to hurt yourself or someone else? Patient reports no desire to harm self or others. Onset of symptoms is unknown. 16:41 Method Of Arrival: Ambulatory ko1 16:41 Acuity: JOSEFA 3 ko1 Triage Assessment: 16:46 General: Appears distressed, uncomfortable, Behavior is cooperative, appropriate for ko1 age. Pain: Complains of pain in back. Neuro: Reports spasms. Historical: - Allergies: 16:46 No Known Allergies; ko1 - Immunization history:: Adult Immunizations unknown. - Social history:: Smoking status: Patient denies any tobacco usage or history of. Screenin:40 [facility] ED Fall Risk Assessment (Adult) History of falling in the last 3 months, cm10 including since admission No falls in past 3 months (0 pts) Confusion or Disorientation No (0 pts) Intoxicated or Sedated No (0 pts) Impaired Gait Yes (1 pt) Mobility Assist Device Used Yes (1 pt) Altered Elimination No (0 pt) Score/Fall Risk Level 0 - 2 = Low Risk Oriented to surroundings, Maintained a safe environment, Provided non-skid footwear, Hourly rounding (assess needs \T\ fall precautionary measures) done. Abuse screen: Denies threats or abuse. Denies injuries from another. Nutritional screening: No deficits noted. Tuberculosis screening: No symptoms or risk factors identified. Assessment: 17:40 General: Appears uncomfortable, Behavior is calm, cooperative. Pain: Complains of pain cm10 in back. Neuro: No deficits noted. Level of Consciousness is awake, alert, obeys commands, Oriented to person, place, time, situation. Respiratory: No deficits noted. Airway is patent Respiratory effort is even, unlabored, Respiratory pattern is regular, symmetrical. Musculoskeletal: Reports pain in back. Vital Signs: 16:41 BP 155 / 92; Pulse 87; Resp 18; Temp 97.5; Pulse Ox 100% ; ko1 ED Course: 16:32 Patient arrived in ED. mr 16:39 Scott Fish MD is Attending Physician. sp3 16:46 Triage completed. ko1 16:46 Arm band placed on right wrist. Patient placed Patient notified of wait time. ko1 17:39 Inserted saline lock: 22 gauge in right antecubital area, using aseptic technique. cm10 Blood collected. 17:40 Patient has correct armband on for positive identification. Provided Education on: ER cm10 process and procedures. . 17:40 No provider procedures requiring assistance completed. cm10 17:58 Lumbar Spine (3 Views) XRAY In Process Unspecified. EDMS 18:16 Scott Fish MD is Referral Physician. snw 18:33 IV discontinued, intact, bleeding controlled, No redness/swelling at site. Pressure cm10 dressing applied. Administered Medications: 17:39 Drug: Ketorolac IVP 30 mg IVP once Route: IVP; Site: right antecubital; cm10 18:39 Follow up: Response: No adverse reaction cm10 17:39 Drug: HYDROmorphone IVP 1 mg IVP once Route: IVP; Site: right antecubital; cm10 18:39 Follow up: Response: No adverse reaction cm10 17:39 Drug: MethylPrednisoLONE IVP 125 mg IVP once Route: IVP; Site: right antecubital; cm10 18:39 Follow up: Response: No adverse reaction cm10 17:39 Drug: Ondansetron IVP 4 mg IVP once; PRN NAUSEA Route: IVP; Site: right antecubital; cm10 18:39 Follow up: Response: No adverse reaction cm10 Medication: 18:34 VIS not applicable for this client. cm10 Outcome: 18:17 Discharge ordered by . snw 18:34 Discharged to home via wheelchair, with family, cm10 18:34 Condition: good 18:34 Discharge instructions given to patient, Instructed on discharge instructions, follow up and referral plans. medication usage, Demonstrated understanding of instructions, follow-up care, medications, Prescriptions given X 3, 18:40 Patient left the ED. cm10 Signatures: Dispatcher [employer] EDMS Sydney Nicole, BLENDING OPERATOR-C BLENDING OPERATOR-Csnw Austyn, Isabell, Reg Reg mr Scott Fish MD MD sp3 Faustina Portillo RN RN ko1 Renetta Wheatley RN RN cm10
[2023-07-26 18:53] VITALS: BP 155/92; TEMP 97.5; O2SAT 100
== END 2023-07-26 18:40 | disposition home or self-care (01) ==
LOC: ER 16:30
DX: M47.896 Other spondylosis, lumbar region (principal)
CPT/HCPCS: 72100; 96375; 96374; 99284; J1170; J2930; J2405